=== PATIENT | female | born 1965 | race Asian ===

== ENCOUNTER 2018-03-29 07:51 | Inpatient (IN) | payer BC ==
[~2018-03-29] VITALS: Ht 160 cm; Wt 74.0 kg
[2018-03-29 07:58] VITALS: Ht 160 cm; Wt 74.0 kg
[2018-03-29 08:53] LABS: BASOPHIL % 0.5 % (0-2); PLATELET COUNT 249 x10^3mcL (130-400); RED CELL DISTRIBUTION WIDTH 13.3 % (11.5-14.5)
[2018-03-29 09:01] LABS: CALCIUM 9.2 mg/dL (8.5-10.1); CARBON DIOXIDE 23.6 mmol/L (21-32); CHLORIDE SERUM 107 mmol/L (98-107); CREATININE SERUM 0.9 mg/dL (0.6-1.0); GFR1 > 60 mL/min; GLUCOSE SERUM 109 mg/dL (74-106); POTASSIUM SERUM 3.7 mmol/L (3.5-5.1); SODIUM SERUM 145 mmol/L (136-145)
[2018-03-29 09:05] LABS: ALBUMIN 3.9 g/dL (3.4-5.0); ALKALINE PHOSPHATASE 65 U/L (46-116); ALT/SGPT 21 U/L (14-59); AMYLASE 114 U/L (25-115); AST/SGOT 18 U/L (15-37); BILIRUBIN TOTAL 0.39 mg/dL (0.20-1.00); LIPASE 157 IU/L (73-393); TOTAL PROTEIN, SERUM 7.9 g/dL (6.4-8.2)
[2018-03-29] MEDS ORDERED: NEU300 PO (09:45)
[2018-03-29] MEDS ORDERED: LOSARTAN POTASS1 TA8 PO (09:46)
[2018-03-29] MEDS ORDERED: PREDNISONE20 MG PO (09:46)
[2018-03-29] MEDS ORDERED: MOBIC15 MG PO (09:46)
[2018-03-29] MEDS ORDERED: PROTONIX40 MG PO (09:46)
[2018-03-29 11:12] VITALS: BP 145/89
[2018-03-29 11:58] LABS: MAGNESIUM 2.3 mg/dL (1.8-2.4)
[2018-03-29 12:00] LABS: CHOLESTEROL/HDL RATIO 1.8
[2018-03-29 12:04] LABS: FREE T4 0.99 ng/dL (0.76-1.46); FREE THYROXINE INDEX 2.2 ug/dL (1.4-4.5); T4(THYROXINE) 6.8 ug/dL (4.7-13.3)
[2018-03-29 12:31] LABS: microscopic required? NO
[2018-03-29 12:33] VITALS: BP 138/78; BP 138/789
[2018-03-29 12:51] LABS: UA SPECIFIC GRAVITY 1.015 (1.005-1.035); urine erythrocyte NEGATIVE (NEGATIVE)
[2018-03-29 13:43] LABS: T3 TOTAL 0.74 ng/mL
[2018-03-29 17:19] VITALS: BP 142/80
[2018-03-29 18:50] VITALS: BP 102/55
[2018-03-29 21:22] VITALS: BP 105/66
[2018-03-30 05:05] VITALS: BP 99/63
[2018-03-30 07:15] LABS: BASOPHIL % 0.2 % (0-2); PLATELET COUNT 191 x10^3mcL (130-400); RED CELL DISTRIBUTION WIDTH 13.6 % (11.5-14.5)
[2018-03-30 08:00] LABS: CALCIUM 7.8 mg/dL (8.5-10.1); CARBON DIOXIDE 24.5 mmol/L (21-32); CHLORIDE SERUM 109 mmol/L (98-107); CREATININE SERUM 0.7 mg/dL (0.6-1.0); GFR1 > 60 mL/min; GLUCOSE SERUM 98 mg/dL (74-106); MAGNESIUM 2.1 mg/dL (1.8-2.4); PHOSPHOROUS 4.2 mg/dL (2.5-4.9); POTASSIUM SERUM 3.7 mmol/L (3.5-5.1); SODIUM SERUM 145 mmol/L (136-145)
[2018-03-30 09:24] VITALS: BP 127/80
[2018-03-30] MEDS ORDERED: MOT800 PO (11:46)
[2018-03-30] MEDS ORDERED: KEFLEX500 M1 PO (12:01)
[2018-03-30 14:18] VITALS: BP 127/80
== END 2018-03-30 15:00 | disposition home or self-care (01) | DRG 742 ==
LOC: ED 07:51 → MU 09:59
PROVIDERS: Emergency Medicine; Family Medicine; Obstetrics & Gynecology
PROC: 0UT10ZZ Resection of Left Ovary, Open Approach (ICD-10-PCS; 2018-03-29)
PROC: 0UT60ZZ Resection of Left Fallopian Tube, Open Approach (ICD-10-PCS; principal; 2018-03-29 16:45)
DX: D27.1 Benign neoplasm of left ovary (principal); N83.512 Torsion of left ovary and ovarian pedicle; I10 Essential (primary) hypertension; E83.39 Other disorders of phosphorus metabolism; M19.90 Unspecified osteoarthritis, unspecified site; Z98.41 Cataract extraction status, right eye; Z79.899 Other long term (current) drug therapy; Z80.3 Family history of malignant neoplasm of breast
CPT/HCPCS: 83880; 84439; 94150; J0690; J1170; J1885; J2175; J2250; J2405; J3010; J3490; J7030